=== PATIENT | female | born 1960 | race Caucasian/White ===

== ENCOUNTER 2017-03-30 20:08 | Inpatient (IN) ==
--- NOTE | 2017-03-30 20:27 | Emergency Department Note ---
Disposition Clinical Impression: Uncontrolled pain Sciatica Qualifiers: Laterality: right Qualified Code(s): M54.31 - Sciatica, right side Back pain Qualifiers: Back pain location: low back pain Chronicity: acute Back pain laterality: unspecified Sciatica presence: with sciatica Sciatica laterality: sciatica laterality unspecified Qualified Code(s): M54.40 - Lumbago with sciatica, unspecified side Disposition: Admitted As Inpatient Condition: Good Instructions: Sciatica (ED) Referrals: NO,PCP [Non-Partnered Physician] - Forms: ED Satisfaction Letter Time of Disposition: 23:47 Back Pain HPI - General Chief Complaint: ED Back Pain/Injury Stated Complaint: Back Pain Time Seen by Provider: 03/30/17 20:23 Source: EMS Mode of arrival: EMS Limitations: no limitations Nursing Notes Reviewed: Yes Vital Signs Reviewed: Yes - History of Present Illness HPI Narrative: 57-year-old female with history of fibromyalgia and IBS presents via EMS for low atraumatic back pain. Reports back soreness that started yesterday. Denies any trauma or injury to the area. She reports a history of microdiscectomy to L4-L5 with Dr. Lozoya 8 weeks ago with a 6 week follow up 2 weeks ago without any complications. Reports today she began experiencing tremendous back pain mostly on the right side and in the buttock area. She has pain that radiates down to the right lower extremity. Pain worse with any type of movement. So painful she can't walk and had to call EMS. She has taken Mobic , gabapentin and a leftover Percocet without much relief. She denies any fever, recent illness, urinary incontinence, bladder incontinence, or saddle anesthesia. She reports pain along the hip and during the EMS ride some lower abdominal tenderness. - Related Data Home Medications Medication Instructions Recorded Confirmed Albuterol Sulfate [Albuterol 2 puff IH Q4HR PRN 01/25/17 01/25/17 Inhaler] Baclofen [Lioresal] 10 mg PO TID 01/25/17 01/25/17 Fluticasone/Vilanterol [Breo 1 each IH DAILY 01/25/17 01/25/17 Ellipta 100-25 Mcg INH] Gabapentin [Neurontin] 1,200 mg PO TID 01/25/17 01/25/17 Meloxicam [Mobic] 15 mg PO DAILY 01/25/17 01/25/17 Omeprazole [PriLOSEC] 40 mg PO DAILY 01/25/17 01/25/17 lamoTRIgine [Lamictal] 150 mg PO BID 01/25/17 01/25/17 Previous Rx's Medication Instructions Recorded OxyCODONE Immed Rel [Roxicodone 5 5 mg PO Q6HR PRN #60 tablet 01/26/17 MG] Allergies Allergy/AdvReac Type Severity Reaction Status Date / Time No Known Allergies Allergy Verified 03/30/17 20:12 All systems ED: reviewed and negative except as stated. Constitutional: Denies: fever, chills Cardiovascular: Denies: chest pain Respiratory: Denies: cough, dyspnea Gastrointestinal: Reports: abdominal pain. Denies: nausea, vomiting, diarrhea Genitourinary: Denies: urgency, dysuria, frequency Musculoskeletal: Reports: back pain. Denies: neck pain Integumentary: Denies: rash, abrasion Neurological: Reports: abnormal gait Past Medical History - Past Medical History Attestation: Yes The following information was validated with the patient. Source: patient Medical history: Reports: asthma, fibromyalgia, GERD Surgical history: Reports: hysterectomy, other Psychiatric history: Reports: anxiety, depression, panic disorder - Social History Smoking Status: Current every day smoker Smokeless Tobacco Status: No Alcohol use: Reports: none Drug use: Reports: none Physical Exam - General Limitations: no limitations General appearance: alert, other (appears uncomfortable) - Head Head exam: atraumatic, normocephalic, normal inspection - Eye Eye exam: Present: normal appearance, PERRL, EOMI - ENT ENT exam: normal exam, normal oropharynx, mucous membranes moist - Neck Neck exam: Present: normal inspection, full ROM, trachea midline - Chest Chest inspection: Present: normal inspection, symmetric chest wall rise. Absent : tenderness - Respiratory Respiratory exam: Present: normal lung sounds bilaterally. Absent: respiratory distress, wheezes - Cardiovascular Cardiovascular exam: Present: regular rate, normal rhythm, normal heart sounds - Abdominal Exam Abdominal exam: Present: soft, tenderness, normal bowel sounds. Absent: distention, guarding, rebound, rigidity Abdominal tenderness: Present: suprapubic - Back Exam Back exam: Present: tenderness (right lumbosacral and right buttock), paraspinal tenderness (R > L), straight leg raise (R), other (Midline incision consistent with discectomy, no significant erythema or fluctuance to the area). Absent: CVA tenderness (R), CVA tenderness (L), vertebral tenderness, rashes - Neurological Exam Neurological exam: Present: alert, oriented X3, motor sensory deficit (tingling to the right lower extremity, refuses to move right leg even with passive ROM as it elicitis significant pain, pain with minimal hip flexion and knee extension) - Expanded Neurological Exam Patient oriented to: Present: person, place, time Sensory exam upper extremity: light touch: Normal Sensory exam lower extremity: light touch: Abnormal Right - Psychiatric Psychiatric exam: Present: anxious - Skin Skin exam: Present: warm, dry, intact, normal color. Absent: rash, cyanosis Course Course Narrative: 57-year-old white female who presents for worsening right lower back pain with radiation to right lower extremity. History of disectomy by Dr. Lozoya with recent follow up and no complications. Reports atraumatic back pain that began yesterday and worst today. Denies any fever, saddle anesthesia, urinary incontinence or bowel incontinence. Reports weakness in the right lower extremity to the point she cannot stand. Any minimal movement exacerbates the pain in the right lower back and also the hip. Denies any fall or trauma. On examination patient is anxious and appears uncomfortable. No focal neurologic deficits. She refuses to move the right lower extremity and at one point reports paralysis of the right lower extremity due to the pain. The leg is very stiff and in a locked position, when I examined it she would not relax the leg. Initial believed to be a cramp but pain continued to persist when relaxed. Any passive movement to the right lower extremity exhibits pain to the back. Movement of the left extremity also produced similar pain as well. She reports tingling and decreased sensation to the entire lower leg and into the foot. 4/5 muscle strength in the right foot. Good bilateral peripheral pulses. She has suprapubic tenderness and requests straight cath for urine sample as she is unable to move without being in tremendous pain. Bladder ultrasound revealed a full bladder. Will check urinalysis, basic labs, and obtain MRI of lumbar spine. Dilaudid, toradol, and decadron for the pain. Patient is in agreement with this plan. Disposition pending results of labs and imaging. - Reevaluation(s) Reevaluation #1: Labs unremarkable with mild elevation of ESR. Urine is unremarkable for infection or pyelonephritis. MRI shows mild disc herniation but no stenosis or neural impingement. There are postoperative changes from recent procedure. At this point no neurosurgical emergency. On re-evaluation, pain has improved with medications but patient continues to have discomfort and limited ROM. Denies any head trauma and reports 2 days ago she was up and walking without any difficulty. She refuses to ambulate due to pain and will therefore admit due to intractable pain and inability to ambulate. Patient is in agreement with this plan. Lumbar Spine MRI 03/30/17 20:51 IMPRESSION: 1. Postoperative changes from recent decompressive right jamin laminectomy at L4-5 with probable discectomy. Residual and/or recurrent right subarticular disc protrusion closely approximates the descending right L5 nerve root in the right lateral recess. Enhancing postoperative granulation tissue within the right lateral epidural space and surrounding the right L5 nerve root. No complication identified. 2. Small central disc protrusion at L5-S1 without stenosis or neural impingement. 3. Additional shallow left foraminal disc protrusion at L4-5 without neural impingement or significant stenosis. 4. Shallow right subarticular disc protrusion at T11-12 without stenosis or neural impingement. D/ / Yan Gage MD / Yan Gage MD Interpreting Provider: Yan Gage MD Time: 23:48 - Consultations Consultation #1: Spoke with on-call hospitalist katelynn Cadena to admit for low back pain and intractable pain. No further orders at this time. Time: 23:48 Vital Signs Temperature 98.6 F 03/30/17 20:15 Pulse Rate 92 03/30/17 20:15 Respiratory Rate 18 03/30/17 20:15 Blood Pressure 155/106 03/30/17 20:15 O2 Sat by Pulse Oximetry 100 03/30/17 20:15 Temperature 98.6 F 03/30/17 20:15 Pulse Rate 80 03/30/17 23:44 Respiratory Rate 16 03/30/17 23:44 Blood Pressure 128/83 03/30/17 23:44 O2 Sat by Pulse Oximetry 94 03/30/17 23:44 Oxygen Delivery Oxygen Delivery Room Air Back Pain/Injury - Differential Diagnosis Differential Diagnosis: Likely: lumbar radiculopathy, sciatica, thoracic back pain, discitis. Unlikely: AAA - Medical Records Medical records reviewed: Yes I reviewed the patient's medical records. - Lab Data Lab results reviewed: Yes I reviewed the patient's lab results. Result diagrams: 03/30/17 21:05 03/30/17 21:05 Lab Results 03/30/17 03/30/17 03/30/17 Range/Units 20:30 21:05 21:05 WBC 7.7 (4.3-11.1) K/mcL RBC 4.32 (3.82-4.97) M/mcL Hgb 13.7 (11.5-15.4) g/dL Hct 40.3 (35.3-44.9) % MCV 93.3 (83.0-100.0) fL MCH 31.7 (28.0-33.3) pg MCHC 34.0 (31.6-35.5) g/dL RDW 13.1 (11.5-14.5) % Plt Count 268 (140-400) K/mcL MPV 9.3 L (9.4-12.4) fL Immature Gran % 0.1 (0-4) % Seg Neutrophils % 56.8 % Lymphocytes % 33.0 % Monocytes % 6.6 % Eosinophils % 2.7 % Basophils % 0.8 % Neutrophils # 4.4 (1.6-8.9) K/mcL Lymphocytes # 2.6 (0.6-4.6) K/mcL Monocytes # 0.5 (0.0-1.3) K/mcL Eosinophils # 0.2 (0.0-0.6) K/mcL Basophils # 0.1 (0.0-0.2) K/mcL ESR 28 H (0-15) mm/hr Sodium (136-145) mEq/L Potassium (3.5-4.5) mEq/L Chloride (98-109) mEq/L Carbon Dioxide (19-29) mEq/L BUN (7-20) mg/dL Creatinine (0.57-1.11) mg/dL Est GFR ( Amer) (> 60) Est GFR (Non-Af Amer) (> 60) BUN/Creatinine Ratio (6-26) Glucose (70-99) mg/dL Calculated Osmolality (280-300) Calcium (8.6-10.8) mg/dL Urine Color Yellow (Yellow) Urine Clarity Clear (Clear) Urine pH 7.0 (5.0-8.0) pH Units Ur Specific [place] 1.005 L (1.010-1.025) Urine Protein Negative (Neg-Trace) mg/dL Urine Glucose (UA) Normal (Normal) mg/dL Urine Ketones Trace H (Negative) mg/dL Urine Blood Negative (Negative) Urine Nitrite Negative (Negative) Urine Bilirubin Negative (Negative) Urine Urobilinogen Normal (Normal) mg/dL Ur Leukocyte Esterase Negative (Negative) Ur Culture Indicated? NO (NO) 03/30/17 Range/Units 21:05 WBC (4.3-11.1) K/mcL RBC (3.82-4.97) M/mcL Hgb (11.5-15.4) g/dL Hct (35.3-44.9) % MCV (83.0-100.0) fL MCH (28.0-33.3) pg MCHC (31.6-35.5) g/dL RDW (11.5-14.5) % Plt Count (140-400) K/mcL MPV (9.4-12.4) fL Immature Gran % (0-4) % Seg Neutrophils % % Lymphocytes % % Monocytes % % Eosinophils % % Basophils % % Neutrophils # (1.6-8.9) K/mcL Lymphocytes # (0.6-4.6) K/mcL Monocytes # (0.0-1.3) K/mcL Eosinophils # (0.0-0.6) K/mcL Basophils # (0.0-0.2) K/mcL ESR (0-15) mm/hr Sodium 138 (136-145) mEq/L Potassium 3.4 L (3.5-4.5) mEq/L Chloride 106 (98-109) mEq/L Carbon Dioxide 21 (19-29) mEq/L BUN 8 (7-20) mg/dL Creatinine 0.84 (0.57-1.11) mg/dL Est GFR ( Amer) > 60 (> 60) Est GFR (Non-Af Amer) > 60 (> 60) BUN/Creatinine Ratio 10 (6-26) Glucose 96 (70-99) mg/dL Calculated Osmolality 284 (280-300) Calcium 9.6 (8.6-10.8) mg/dL Urine Color (Yellow) Urine Clarity (Clear) Urine pH (5.0-8.0) pH Units Ur Specific [place] (1.010-1.025) Urine Protein (Neg-Trace) mg/dL Urine Glucose (UA) (Normal) mg/dL Urine Ketones (Negative) mg/dL Urine Blood (Negative) Urine Nitrite (Negative) Urine Bilirubin (Negative) Urine Urobilinogen (Normal) mg/dL Ur Leukocyte Esterase (Negative) Ur Culture Indicated? (NO) - Radiology Data Radiology results reviewed: Yes I reviewed the patient's radiology results. Lumbar Spine MRI 03/30/17 20:51 IMPRESSION: 1. Postoperative changes from recent decompressive right jamin laminectomy at L4-5 with probable discectomy. Residual and/or recurrent right subarticular disc protrusion closely approximates the descending right L5 nerve root in the right lateral recess. Enhancing postoperative granulation tissue within the right lateral epidural space and surrounding the right L5 nerve root. No complication identified. 2. Small central disc protrusion at L5-S1 without stenosis or neural impingement. 3. Additional shallow left foraminal disc protrusion at L4-5 without neural impingement or significant stenosis. 4. Shallow right subarticular disc protrusion at T11-12 without stenosis or neural impingement. D/ / Yan Gage MD / Yan Gage MD Interpreting Provider: Yan Gage MD Attestation Statement - Attestation Attestation: Patient is a 57-year-old white female who presents to the emergency department by EMS today for gradually worsening right-sided back pain. Patient is status post lumbosacral surgery and discectomy by Dr. Lozoya on January 26 of this year. Patient followed up in the office 2 weeks ago for outpatient follow-up and had been doing quite well, fully ambulatory with minimal to no pain. Patient states last few days she has had gradually worsening lumbosacral back pain which has significantly worsened today. Patient feels pain in bilateral paraspinal lumbosacral area right greater than left and is having pain that radiates down and involves the right gluteal area and the right posterior and lateral thigh. Patient denies any weakness of the extremities but range of motion at the hip or knee causes worsening pain in her right gluteal area and low back. Patient denies any falls or trauma at home that may have contributed to her worsening symptoms. Patient denies any fevers or chills, no drainage or redness near the incision. Patient denies any loss of bowel or bladder associated with this increased pain. Patient without focal neurologic deficits on examination. I agree with the patient's physical exam findings as documented. At this time we will obtain IV access and treat the patient's pain, obtain urinalysis and labs, and pursue MRI imaging due to severity of pain on presentation. Labs are unremarkable, MRI shows some mild disc herniation but no nerve impingement or encroachment on the spine. On reevaluation following pain medicine administration patient is still having limited range of motion refuses to ambulate secondary to pain. We will admit the patient due to her inability to ambulate and continue pain control and reevaluate in the morning. Patient was accepted by the hospitalist for ongoing pain management.
[2017-03-30] MEDS ORDERED: Ketorolac 15 MG/ML VIAL IVP ONE (20:51)
[2017-03-30] MEDS ORDERED: *HR* HYDROmorphone (PF) 1 MG/ML SYRINGE IVP ONE (20:51)
[2017-03-30] MEDS ORDERED: Dexamethasone 4 MG/ML VIAL IVP ONE (20:52)
[2017-03-30 21:12] LABS: Basophils # 0.1 K/mcL (0.0-0.2); Basophils % 0.8 %; Eosinophils # 0.2 K/mcL (0.0-0.6); Eosinophils % 2.7 %; Hematocrit 40.3 % (35.3-44.9); Hemoglobin 13.7 g/dL (11.5-15.4); Immature Granulocytes % 0.1 % (0-4); Lymphocytes # 2.6 K/mcL (0.6-4.6); Mean Corpuscular Hemoglobin 31.7 pg (28.0-33.3); Mean Corpuscular Volume 93.3 fL (83.0-100.0); Mean Platelet Volume 9.3 fL (9.4-12.4); Monocytes # 0.5 K/mcL (0.0-1.3); Monocytes % 6.6 %; Neutrophils # 4.4 K/mcL (1.6-8.9); Platelet Count 268 K/mcL (140-400); Red Blood Count 4.32 M/mcL (3.82-4.97); Red Cell Distribution Width 13.1 % (11.5-14.5); Segmented Neutrophils % 56.8 %
[2017-03-30 21:23] LABS: BUN/Creatinine Ratio 10 (6-26); Blood Urea Nitrogen 8 mg/dL (7-20); Calcium 9.6 mg/dL (8.6-10.8); Carbon Dioxide 21 mEq/L (19-29); Chloride 106 mEq/L (98-109); Glucose 96 mg/dL (70-99); Osmolality,Calculated 284 (280-300); Potassium 3.4 mEq/L (3.5-4.5); Sodium 138 mEq/L (136-145); eGFR For African Americans > 60 (> 60); eGFR For Non-African Americans > 60 (> 60)
[2017-03-30 21:41] LABS: Bilirubin,Urine Negative (Negative); Blood,Urine Negative (Negative); Clarity,Urine Clear (Clear); Color,Urine Yellow (Yellow); Glucose,Urine (UA) Normal (Normal); Ketones,Urine Trace mg/dL (Negative); Leukocyte Esterase,Urine Negative (Negative); Nitrite,Urine Negative (Negative); Protein,Urine Negative (Neg-Trace); Specific Gravity,Urine 1.005 (1.010-1.025); Urobilinogen,Urine Normal (Normal)
[2017-03-31] MEDS ORDERED: *HR* HYDROmorphone (PF) 1 MG/ML SYRINGE IVP ONE (01:53)
[2017-03-31] MEDS ORDERED: Naloxone 0.4 MG/ML INJ IVP PRN (03:13)
--- NOTE | 2017-03-31 03:19 | Internal Med History&Physical ---
Date of Encounter: 03/31/17 Time of Encounter: 03:16 Assessment and Plan (1) Intractable back pain Current visit: Yes Status: Acute Intractable back pain, history of L4-L5 discectomy Consult Dr. Lozoya Use Toradol and Dilaudid as needed Fall precautions Omeprazole for GI prophylaxis and subcutaneous heparin for DVT prophylaxis. Patient will be admitted for observation. Full code. Time spent on this admission 40 minutes. Following (2) Hypokalemia Current visit: Yes Status: Acute Replete as needed (3) GERD (gastroesophageal reflux disease) Current visit: Yes Status: Acute Omeprazole Qualifiers: Esophagitis presence: without esophagitis Qualified Code(s): K21.9 - Gastro -esophageal reflux disease without esophagitis (4) Tobacco abuse Current visit: Yes Status: Acute Smoking cessation counseling, nicotine patch (5) Neuropathy Current visit: Yes Status: Acute (6) Lumbar radiculopathy Current visit: No Status: Chronic (7) Sciatica Current visit: Yes Status: Acute Qualifiers: Laterality: right Qualified Code(s): M54.31 - Sciatica, right side Internal Medicine - H&P: HPI Chief complaint: back pain Admitted From: Emergency Dept History of present illness: Ms. Taylor is a 57 year old female with a past medical history of fibromyalgia, tobacco use, neuropathy who was evaluated at the emergency room for increased back pain since yesterday. She was brought by the EMS complaining of excruciating lumbar pain radiating down to her right lower extremity 10 out of 10 in intensity. The patient had a discectomy and L4-L5 with Dr. Lozoya about 8 weeks ago. An MRI showed no acute changes or severe stenosis but multiple areas with central disc protrusion especially L5 and S1, residual findings of L4 and L5 discectomy with right subarticular disc protrusion. The patient was not able to stand up or move her leg due to severe pain. At the moment after receiving Toradol and Dilaudid the pain is 8 out of 10. Blood pressure is 155/ 106 and heart rate 92. Denies any incontinence. Potassium is 3.4. Requested to see Dr. Lozoya later today Past Med Surg Social Fam HX - Past Medical History Medical history: asthma, fibromyalgia, GERD, other (Tobacco abuse, neuropathy, hepatitis B, shingles) Psychiatric history: anxiety, depression, panic disorder, previous psychiatric hospitalization - Past Surgical History Surgical History: hysterectomy, STEVEN/BSO, other (D&C, tubal ligation, recent discectomy) - Social History Smoking Status: Current every day smoker Packs per day: 0.5 Smokeless Tobacco Status: No Alcohol use: occasionally Drug use: none - Family History Father Living Status: Hx Family Cardiac Disorders: Yes (stroke) Hx Family Neuromuscular Disorders: Yes (CVA) - Additional Family History Additional family history: Father with prostate cancer CVA, mother with cervical cancer and Alzheimer's Internal Medicine - H&P: Meds Albuterol Sulfate [Albuterol Inhaler] 2 puff IH Q4HR PRN 01/25/17 [History] Baclofen [Lioresal] 10 mg PO TID 01/25/17 [History] Fluticasone/Vilanterol [Breo Ellipta 100-25 Mcg INH] 1 each IH DAILY 01/25/17 [ History] Gabapentin [Neurontin] 1,200 mg PO TID 01/25/17 [History] Meloxicam [Mobic] 15 mg PO DAILY 01/25/17 [History] Omeprazole [PriLOSEC] 40 mg PO DAILY 01/25/17 [History] lamoTRIgine [Lamictal] 150 mg PO BID 01/25/17 [History] OxyCODONE Immed Rel [Roxicodone 5 MG] 5 mg PO Q6HR PRN #60 tablet 01/26/17 [Rx] Allergies No Known Allergies Allergy (Verified 03/30/17 20:12) All Systems PM: A 10-system review of systems was performed and is negative for pertinent findings except as documented above in the HPI. Review of systems: Severe right lower extremity pain. All other systems out of the 10 reviewed were negative - Constitutional Vitals: Temp Pulse Resp BP Pulse Ox 98.6 F 80 16 128/83 94 03/30/17 20:15 03/30/17 23:44 03/30/17 23:44 03/30/17 23:44 03/30/17 23:44 General appearance: Present: A&O X 3 - Head Head exam: Present: atraumatic, normocephalic - Eye Eye exam: Present: PERRL, conjuntiva pink, sclera anicteric Pupils: Present: PERRL - Neck Neck exam general surgery: Present: supple, trachea midline. Absent: lymphadenopathy - Respiratory Respiratory exam: Present: CTAB. Absent: accessory muscle use, rales, rhonchi, wheezes - Cardiovascular Cardiovascular exam: Present: RRR, +S1, +S2. Absent: diastolic murmur, gallop, rubs, systolic murmur - GI/Abdominal GI/Abdominal exam: Present: normal bowel sounds, soft, no peritoneal signs. Absent: distended, tenderness - Extremities Exam Extremities exam: Present: warm, radial pulses palpable and symetrical. Absent : calf tenderness, cyanotic, pedal edema Additional comments: Unable to move the right lower extremity due to pain - Neurological Exam Neurological exam: Present: CN II-XII intact, oriented X3, no focal deficits. Absent: pronater drift, facial droop, speech deficit - Skin Skin exam: Present: dry, intact Internal Med - H&P Results - Labs CBC & Chem 7: 03/30/17 21:05 03/30/17 21:05
[2017-03-31] MEDS: Ketorolac 30 MG/ML VIAL IVP PRN ×3 (04:02→17:47)
[2017-03-31] MEDS: *HR* HYDROmorphone (PF) 1 MG/ML SYRINGE IVP PRN ×2 (04:02→08:54)
[2017-03-31] MEDS: 0.9 % Sodium Chloride 1,000 ML IVC SCH ×2 (05:59→21:04)
[2017-03-31] MEDS: lamoTRIgine 100 MG TABLET PO SCH ×2 (08:30→20:52)
[2017-03-31] MEDS: Baclofen 10 MG TABLET PO SCH ×2 (08:30→15:10)
[2017-03-31] MEDS: Gabapentin 400 MG CAPSULE PO SCH ×3 (08:30→20:52)
[2017-03-31] MEDS: Nicotine 21 MG PATCH.TD24 TD SCH (08:30)
[2017-03-31] MEDS: *HR* Heparin 5,000 UNIT/ML VIAL SQ SCH (10:04)
[2017-03-31] MEDS: *HR* HYDROmorphone 2 MG/ML SYRINGE IVP PRN ×4 (10:12→21:03)
[2017-03-31] MEDS ORDERED: Albuterol 2.5 MG/3 ML NEBULIZER IH PRN (10:53)
--- NOTE | 2017-03-31 13:54 | Orthopedic Consult Note ---
Date of Encounter: 03/31/17 Time of Encounter: 11:00 Assessment and Plan (1) Low back pain Current Visit: Yes Status: Chronic MRI and case reviewed with Dr. Lozoya. Will stop patient's Baclofen and start Tizanidine to trial different muscle relaxer. Will plan for ADELINE with Dr. Rangel as patient has had injections by him in the past and was pleased with his care as soon as able to be scheduled. Qualifiers: Chronicity: chronic Back pain laterality: bilateral Sciatica presence: with sciatica Sciatica laterality: sciatica of right side Qualified Code(s) : M54.41 - Lumbago with sciatica, right side; G89.29 - Other chronic pain (2) Right leg pain Current Visit: Yes Status: Acute History of Present Illness Chief complaint: low back pain, right leg pain HPI: Ms. Taylor is a 57 year old female presents for low back and right leg pain that had microdiscetomy L4-L5 on 01/25/17 and had been doing well up until per patient about the past "few" days. States it began as low back pain that began wrapping around her flank to her bladder area. She states 1 day ago she began experiencing tremendous back pain with radiation of pain down her posterior and lateral right lower extremity per pt mostly in the buttock posterior and lateral thigh as well as lateral calf. She states she has been very weak because of this pain and states "I know something is wrong". She admits to a history of Fibromyalgia for which she takes Baclofen on a regular basis which per patient has not helped with her current pain. She states that it intensifies tremendously with movement of her back or legs but is tolerable with laying flat on her back still. She admits to a history of kidney stones and states she believes she passed one yesterday. She states her lower abdominal pain is improved, but her right hip/buttock pain is the same as yesterday. She admits to lifting her 20-40lb grandchildren repeatedly each day since her lifting restrictions were lifted at her last follow up with [facility]. She denies any fever, recent illness, bowel or bladder incontinence, or saddle anesthesia. Upon exam patient is lying supine in bed. She is alert and oriented x 3. She is anxious and becomes tearful with conversation about her situation. She is neurovascularly intact with regard to all extremities. She does admit to some paresthesias along the right lateral thigh and lateral calf with light touch, expresses pain with palpation of these areas. Right hip from SI anterior to greater trochanteric bursa area exquisitely tender to touch. Passive ROM of bilateral lower extremities within normal limits. AROM impeeded on the left and right in particular with knee and hip motion. Rigth worse than left. It seems pain is contributing to impeeded AROM on the right. Straight leg raise positive on the right. MRI lumbar spine from 03/30/17 reveals: IMPRESSION: 1. Postoperative changes from recent decompressive right jamin laminectomy at L4-5 with probable discectomy. Residual and/or recurrent right subarticular disc protrusion closely approximates the descending right L5 nerve root in the right lateral recess. Enhancing postoperative granulation tissue within the right lateral epidural space and surrounding the right L5 nerve root. No complication identified. 2. Small central disc protrusion at L5-S1 without stenosis or neural impingement. 3. Additional shallow left foraminal disc protrusion at L4-5 without neural impingement or significant stenosis. 4. Shallow right subarticular disc protrusion at T11-12 without stenosis or neural impingement. MRI and case reviewed with Dr. Lozoya. Will stop patient's baclofen and start Tizanidine to trial different muscle relaxer. Will plan for ADELINE with Dr. Rangel as patient has had injections by him in the past and was pleased with his care as soon as able to be scheduled. Thank you for this consultation. Past Med Surg Social Fam HX - Past Medical History Medical history: asthma, fibromyalgia, GERD Psychiatric history: anxiety, depression, panic disorder - Past Surgical History Surgical History: hysterectomy, other - Social History Smoking Status: Current every day smoker Packs per day: 0.5 Smokeless Tobacco Status: No Alcohol use: none Drug use: none - Family History Father Living Status: Hx Family Cardiac Disorders: Yes (stroke) Hx Family Neuromuscular Disorders: Yes (CVA) Medications and Allergies Albuterol Sulfate [Albuterol Inhaler] 2 puff IH Q4HR PRN 01/25/17 [History] Baclofen [Lioresal] 10 mg PO TID 01/25/17 [History] Fluticasone/Vilanterol [Breo Ellipta 100-25 Mcg INH] 1 each IH DAILY 01/25/17 [ History] Gabapentin [Neurontin] 1,200 mg PO TID 01/25/17 [History] Meloxicam [Mobic] 15 mg PO DAILY 01/25/17 [History] Omeprazole [PriLOSEC] 40 mg PO DAILY 01/25/17 [History] lamoTRIgine [Lamictal] 150 mg PO BID 01/25/17 [History] Benzonatate [Tessalon] 100 mg PO TID PRN 03/31/17 [History] HYDROcodone/Acet 5/325 mg [[place] 5-325 mg] 1 tab PO Q8H PRN 03/31/17 [History] Allergies No Known Allergies Allergy (Verified 03/30/17 20:12) All Systems Reviewed: A 10-system review of systems was performed and is negative for pertinent findings except as documented above in the HPI. Physical Exam - Constitutional Vitals: Temp Pulse Resp BP Pulse Ox 97.8 F 88 18 152/86 96 03/31/17 11:07 03/31/17 11:07 03/31/17 11:07 03/31/17 11:07 03/31/17 11:07 Results - Labs Result Diagrams: 03/30/17 21:05 03/30/17 21:05 Labs: Abnormal lab results MPV 9.3 fL (9.4-12.4) L 03/30/17 21:05 ESR 28 mm/hr (0-15) H 03/30/17 21:05 Potassium 3.4 mEq/L (3.5-4.5) L 03/30/17 21:05 Ur Specific [place] 1.005 (1.010-1.025) L 03/30/17 20:30 Urine Ketones Trace mg/dL (Negative) H 03/30/17 20:30 All other labs normal. Consult Discharge Plan - Plan Referrals: Fer Cobb MD [Primary Care Provider] -
--- NOTE | 2017-03-31 13:57 | Event Note ---
Date of Encounter: 03/31/17 Time of Encounter: 09:35 Patient continues to have severe back pain that has not improved with current pain medication regimen. We will increase narcotic medication regimen. Height is for complications. Discussed with Dr. Lozoya. He reviewed the MRI of the patient and will evaluate the patient later today.
[2017-03-31] MEDS ORDERED: tiZANidine 4 MG TABLET PO PRN (15:22)
[2017-03-31] MEDS: Ondansetron 4 MG/2 ML VIAL IVP PRN (17:42)
[2017-03-31] MEDS: Budesonide/Formoterol 160/4.5 MDI IH SCH (20:26)
[2017-04-01] MEDS: *HR* HYDROmorphone 2 MG/ML SYRINGE IVP PRN ×2 (04:17→10:46)
[2017-04-01 05:06] LABS: BUN/Creatinine Ratio 10 (6-26); Blood Urea Nitrogen 7 mg/dL (7-20); Calcium 8.5 mg/dL (8.6-10.8); Carbon Dioxide 22 mEq/L (19-29); Chloride 112 mEq/L (98-109); Glucose 96 mg/dL (70-99); Osmolality,Calculated 288 (280-300); Potassium 4.1 mEq/L (3.5-4.5); Sodium 140 mEq/L (136-145); eGFR For African Americans > 60 (> 60); eGFR For Non-African Americans > 60 (> 60)
[2017-04-01] MEDS: *HR* Heparin 5,000 UNIT/ML VIAL SQ SCH ×2 (06:33→19:08)
[2017-04-01] MEDS: Budesonide/Formoterol 160/4.5 MDI IH SCH ×2 (08:42→20:27)
[2017-04-01] MEDS ORDERED: *HR* OxyCODONE/APAP 10/325 TABLET PO PRN (08:44)
[2017-04-01] MEDS ORDERED: Ketorolac 30 MG/ML VIAL IVP PRN (08:57)
[2017-04-01] MEDS: Gabapentin 400 MG CAPSULE PO SCH ×3 (09:17→22:38)
[2017-04-01] MEDS: lamoTRIgine 100 MG TABLET PO SCH ×2 (09:17→22:37)
[2017-04-01] MEDS: Nicotine 21 MG PATCH.TD24 TD SCH (09:18)
[2017-04-01] MEDS: *HR* OxyCODONE/APAP 10/325 TABLET PO PRN ×3 (09:18→22:37)
[2017-04-01] MEDS: Sennosides/Docusate Sodium TABLET PO SCH (12:10)
[2017-04-01] MEDS: tiZANidine 4 MG TABLET PO SCH ×3 (13:50→22:38)
--- NOTE | 2017-04-01 16:14 | Internal Med Progress Note ---
Date of Encounter: 04/01/17 Time of Encounter: 09:25 - Assessment and plan (1) Intractable back pain Current Visit: Yes Status: Acute Assessment and plan: Intractable low back pain. Improving slowly. Evaluated by spine surgery. Recommend outpatient pain management evaluation for epidural steroid injection. For now continue pain control and physical therapy. Will start oral pain medications in addition to narcotic intravenous medications. High-risk for complications due to use of intravenous narcotic medications. Patient received 4 doses of 2 mg Dilaudid yesterday. Patient has also been started on Zanaflex for muscle spasm. Baclofen has been stopped. (2) GERD (gastroesophageal reflux disease) Current Visit: Yes Status: Acute Assessment and plan: Continue omeprazole Qualifiers: Esophagitis presence: without esophagitis Qualified Code(s): K21.9 - Gastro -esophageal reflux disease without esophagitis (3) Hypokalemia Current Visit: Yes Status: Resolved (4) Lumbar radiculopathy Current Visit: No Status: Chronic Assessment and plan: Follow-up with spine surgery and pain management as outpatient. For now continue physical therapy. (5) Neuropathy Current Visit: Yes Status: Chronic Assessment and plan: Continue Neurontin. - Subjective Interval history: Patient's pain is much better today although she is still requiring intravenous narcotic medications to control her pain. She is able to move more without worsening pain. She denies any new complaints at this time although she does have some continued numbness in her right lower extremity compared to her left. No bowel bladder incontinence - Constitutional Vitals: Temp Pulse Resp BP Pulse Ox 98.4 F 76 16 110/62 93 04/01/17 11:26 04/01/17 14:27 04/01/17 14:27 04/01/17 14:27 04/01/17 14:27 General appearance: Present: cooperative, A&O X 3, answers questions appropriately Exam: Moderate distress - Eye Eye exam: Present: EOMI, PERRL, conjuntiva pink, sclera anicteric - Neck Neck exam general surgery: Present: supple, trachea midline. Absent: lymphadenopathy - Respiratory Respiratory exam: Present: CTAB. Absent: accessory muscle use, rales, rhonchi, wheezes - Cardiovascular Cardiovascular exam: Present: RRR, +S1, +S2. Absent: diastolic murmur, gallop, rubs, systolic murmur - GI/Abdominal GI/Abdominal exam: Present: normal bowel sounds, soft, no peritoneal signs. Absent: distended, tenderness - Extremities Exam Extremities exam: Present: warm, radial pulses palpable and symetrical. Absent : calf tenderness, cyanotic, pedal edema - Neurological Exam Neurological exam: Present: CN II-XII intact, oriented X3, no focal deficits, strengths equal and symetr throughout. Absent: facial droop, speech deficit Additional comments: Decreased sensation in the right foot dorsal surface compared to the left - Skin Skin exam: Present: dry, intact Internal Medicine: Result - Labs CBC & Chem 7: 03/30/17 21:05 04/01/17 04:06 Labs: BMP 04/01/17 04:06 Sodium 140 Potassium 4.1 Chloride 112 H Carbon Dioxide 22 BUN 7 Creatinine 0.73 Glucose 96 Calcium 8.5 L Consult Discharge Plan - Plan Referrals: Fer Cobb MD [Primary Care Provider] - 04/08/17 2:15 pm () - Attending Attestation This document has been at least partially created by [employer] recognition technology by Dr. Cunningham. Errors in grammar, wording or other phrases may exist. If errors are found after the documentation is signed, they will be addressed individually in the addendum section of this document when appropriate.
[2017-04-02] MEDS: *HR* HYDROmorphone 2 MG/ML SYRINGE IVP PRN ×2 (01:57→10:04)
[2017-04-02] MEDS: *HR* Heparin 5,000 UNIT/ML VIAL SQ SCH ×2 (05:02→16:14)
[2017-04-02] MEDS: tiZANidine 4 MG TABLET PO SCH ×4 (08:13→20:17)
[2017-04-02] MEDS: lamoTRIgine 100 MG TABLET PO SCH ×2 (08:13→20:17)
[2017-04-02] MEDS: Gabapentin 400 MG CAPSULE PO SCH ×3 (08:13→20:16)
[2017-04-02] MEDS: *HR* OxyCODONE/APAP 10/325 TABLET PO PRN ×2 (08:14→23:20)
[2017-04-02] MEDS: Sennosides/Docusate Sodium TABLET PO SCH (08:15)
[2017-04-02] MEDS: Nicotine 21 MG PATCH.TD24 TD SCH (08:15)
[2017-04-02] MEDS ORDERED: Sennosides/Docusate Sodium TABLET PO SCH (09:00)
[2017-04-02] MEDS: Budesonide/Formoterol 160/4.5 MDI IH SCH ×2 (11:19→22:36)
[2017-04-02] MEDS ORDERED: *HR* HYDROmorphone 2 MG/ML SYRINGE IVP PRN (11:27)
--- NOTE | 2017-04-02 13:53 | Internal Med Progress Note ---
Date of Encounter: 04/02/17 Time of Encounter: 09:00 - Assessment and plan (1) Intractable back pain Current Visit: Yes Status: Acute Assessment and plan: Continue current management with physical therapy pain medications. His current therapy recommends placement to inpatient rehabilitation/swelling bed. 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 We will continue physical therapy in the meantime. Moderate risk for complications. We will wean dosages of intravenous narcotic medications and transition to oral medications. (2) GERD (gastroesophageal reflux disease) Current Visit: Yes Status: Chronic Assessment and plan: Continue PPI Qualifiers: Esophagitis presence: without esophagitis Qualified Code(s): K21.9 - Gastro -esophageal reflux disease without esophagitis (3) Hypokalemia Current Visit: Yes Status: Resolved (4) Lumbar radiculopathy Current Visit: No Status: Chronic Assessment and plan: Follow-up with pain management as outpatient (5) Neuropathy Current Visit: Yes Status: Chronic Assessment and plan: Continue gabapentin - Subjective Interval history: Patient's pain is improving but she still has significant pain with trying to sit up and ambulate. Continues to require intermittent doses of narcotic medications intravenously. Denies any bowel or bladder incontinence or focal weakness in her lower extremities - Constitutional Vitals: Temp Pulse Resp BP Pulse Ox 98.1 F 76 16 116/71 91 04/02/17 11:31 04/02/17 11:31 04/02/17 11:31 04/02/17 11:31 04/02/17 11:31 General appearance: Present: cooperative, mild distress, A&O X 3, answers questions appropriately - Respiratory Respiratory exam: Present: CTAB. Absent: accessory muscle use, rales, rhonchi, wheezes - Cardiovascular Cardiovascular exam: Present: RRR, +S1, +S2. Absent: diastolic murmur, gallop, rubs, systolic murmur - GI/Abdominal GI/Abdominal exam: Present: normal bowel sounds, soft, no peritoneal signs. Absent: distended, tenderness - Neurological Exam Neurological exam: Present: alert, oriented X3, no focal deficits, strengths equal and symetr throughout. Absent: facial droop, speech deficit - Skin Skin exam: Present: dry, intact Internal Medicine: Result - Labs CBC & Chem 7: 03/30/17 21:05 04/01/17 04:06 Consult Discharge Plan - Plan Additional Instructions: Follow-up with pain management as outpatient in 1-2 weeks for epidural steroid injection Referrals: Fer Cobb MD [Primary Care Provider] - 04/08/17 2:15 pm () - Attending Attestation This document has been at least partially created by [employer] recognition technology by Dr. Cunningham. Errors in grammar, wording or other phrases may exist. If errors are found after the documentation is signed, they will be addressed individually in the addendum section of this document when appropriate.
[2017-04-03] MEDS: Ondansetron 4 MG/2 ML VIAL IVP PRN (03:38)
[2017-04-03] MEDS: *HR* Heparin 5,000 UNIT/ML VIAL SQ SCH ×2 (05:20→16:44)
[2017-04-03] MEDS: Gabapentin 400 MG CAPSULE PO SCH ×3 (07:57→21:01)
[2017-04-03] MEDS: lamoTRIgine 100 MG TABLET PO SCH ×2 (07:57→21:01)
[2017-04-03] MEDS: tiZANidine 4 MG TABLET PO SCH ×4 (07:57→21:01)
[2017-04-03] MEDS: Nicotine 21 MG PATCH.TD24 TD SCH (08:01)
[2017-04-03] MEDS: Acetaminophen 325 MG TABLET PO PRN ×2 (08:03→21:12)
[2017-04-03] MEDS: Budesonide/Formoterol 160/4.5 MDI IH SCH ×2 (08:03→22:19)
[2017-04-03] MEDS: *HR* OxyCODONE/APAP 10/325 TABLET PO PRN ×2 (10:26→23:13)
[2017-04-03] MEDS ORDERED: *HR* HYDROmorphone 2 MG/ML SYRINGE IVP PRN (13:50)
--- NOTE | 2017-04-03 13:51 | Internal Med Progress Note ---
Date of Encounter: 04/03/17 Time of Encounter: 10:35 - Assessment and plan (1) Intractable back pain Current Visit: Yes Status: Acute Assessment and plan: Improving. Continue physical therapy and pain control. Awaiting placement to skilled rehabilitation. Low risk for complications at this time. Minimal IV narcotic use. (2) GERD (gastroesophageal reflux disease) Current Visit: Yes Status: Chronic Assessment and plan: Continue PPI Qualifiers: Esophagitis presence: without esophagitis Qualified Code(s): K21.9 - Gastro -esophageal reflux disease without esophagitis (3) Hypokalemia Current Visit: Yes Status: Resolved (4) Lumbar radiculopathy Current Visit: No Status: Chronic Assessment and plan: Continue physical therapy and pain control. Follow-up with pain management for epidural steroid injection. (5) Neuropathy Current Visit: Yes Status: Chronic Assessment and plan: Continue gabapentin (6) Diarrhea Current Visit: Yes Status: Acute Assessment and plan: Likely due to use of laxatives diabetes. This is improving now. Will follow. If patient continues to have diarrhea, we will check for C. difficile. Qualifiers: Diarrhea type: unspecified type Qualified Code(s): R19.7 - Diarrhea, unspecified - Subjective Interval history: Patient remains in pain although this is improving and patient is able to tolerate oral pain medications better for pain control. She is also able to move and worked with physical therapy better. She wishes to go to rehabilitation for further care and recovery. - Constitutional Vitals: Temp Pulse Resp BP Pulse Ox 98.0 F 74 15 109/70 93 04/03/17 11:19 04/03/17 11:19 04/03/17 11:19 04/03/17 11:19 04/03/17 11:19 General appearance: Present: cooperative, mild distress, A&O X 3, answers questions appropriately - Neck Neck exam general surgery: Present: supple, trachea midline. Absent: lymphadenopathy - Respiratory Respiratory exam: Present: CTAB. Absent: accessory muscle use, rales, rhonchi, wheezes - Cardiovascular Cardiovascular exam: Present: RRR, +S1, +S2. Absent: diastolic murmur, gallop, rubs, systolic murmur - GI/Abdominal GI/Abdominal exam: Present: normal bowel sounds, soft, no peritoneal signs. Absent: distended, tenderness - Extremities Exam Extremities exam: Present: warm, radial pulses palpable and symetrical. Absent : calf tenderness, cyanotic, pedal edema - Neurological Exam Neurological exam: Present: alert, oriented X3, no focal deficits, strengths equal and symetr throughout. Absent: facial droop, speech deficit Internal Medicine: Result - Labs CBC & Chem 7: 03/30/17 21:05 04/01/17 04:06 Consult Discharge Plan - Plan Additional Instructions: Follow-up with pain management as outpatient in 1-2 weeks for epidural steroid injection Referrals: Fer Cobb MD [Primary Care Provider] - 04/08/17 2:15 pm () - Attending Attestation This document has been at least partially created by [employer] recognition technology by Dr. Cunningham. Errors in grammar, wording or other phrases may exist. If errors are found after the documentation is signed, they will be addressed individually in the addendum section of this document when appropriate.
[2017-04-04] MEDS: *HR* Heparin 5,000 UNIT/ML VIAL SQ SCH ×2 (04:15→17:45)
[2017-04-04] MEDS: Budesonide/Formoterol 160/4.5 MDI IH SCH ×2 (08:03→21:17)
[2017-04-04] MEDS: Acetaminophen 325 MG TABLET PO PRN ×3 (08:41→21:20)
[2017-04-04] MEDS: Gabapentin 400 MG CAPSULE PO SCH ×3 (08:41→21:19)
[2017-04-04] MEDS: tiZANidine 4 MG TABLET PO SCH ×4 (08:41→21:20)
[2017-04-04] MEDS: lamoTRIgine 100 MG TABLET PO SCH ×2 (08:42→21:19)
[2017-04-04] MEDS: Nicotine 21 MG PATCH.TD24 TD SCH (08:42)
--- NOTE | 2017-04-04 10:17 | Internal Med Progress Note ---
Date of Encounter: 04/04/17 Time of Encounter: 10:17 - Assessment and plan (1) Intractable back pain Current Visit: Yes Status: Acute Assessment and plan: Continue current pain management. Awaiting placement to rehabilitation for physical therapy. Low risk for complications. (2) GERD (gastroesophageal reflux disease) Current Visit: Yes Status: Chronic Assessment and plan: Continue PPI Qualifiers: Esophagitis presence: without esophagitis Qualified Code(s): K21.9 - Gastro -esophageal reflux disease without esophagitis (3) Hypokalemia Current Visit: Yes Status: Resolved (4) Lumbar radiculopathy Current Visit: No Status: Chronic Assessment and plan: Physical therapy. Follow-up outpatient with spine surgery and pain management (5) Neuropathy Current Visit: Yes Status: Chronic (6) Diarrhea Current Visit: Yes Status: Resolved Qualifiers: Diarrhea type: unspecified type Qualified Code(s): R19.7 - Diarrhea, unspecified - Subjective Interval history: Patient's pain is improving. Patient is able to tolerate more activity. Denies any other new complaints at this time. Diarrhea has improved. - Constitutional Vitals: Temp Pulse Resp BP Pulse Ox 98 F 74 19 110/67 92 04/04/17 08:37 04/04/17 08:37 04/04/17 08:37 04/04/17 08:37 04/04/17 08:37 General appearance: Present: cooperative, mild distress, A&O X 3, answers questions appropriately - Neck Neck exam general surgery: Present: supple, trachea midline. Absent: lymphadenopathy - Respiratory Respiratory exam: Present: CTAB. Absent: accessory muscle use, rales, rhonchi, wheezes - Cardiovascular Cardiovascular exam: Present: RRR, +S1, +S2. Absent: diastolic murmur, gallop, rubs, systolic murmur - GI/Abdominal GI/Abdominal exam: Present: normal bowel sounds, soft, no peritoneal signs. Absent: distended, tenderness Internal Medicine: Result - Labs CBC & Chem 7: 03/30/17 21:05 04/01/17 04:06 Consult Discharge Plan - Plan Additional Instructions: Follow-up with pain management as outpatient in 1-2 weeks for epidural steroid injection Referrals: Fer Cobb MD [Primary Care Provider] - 04/08/17 2:15 pm () - Attending Attestation This document has been at least partially created by [employer] recognition technology by Dr. Cunningham. Errors in grammar, wording or other phrases may exist. If errors are found after the documentation is signed, they will be addressed individually in the addendum section of this document when appropriate.
[2017-04-04] MEDS: *HR* OxyCODONE/APAP 10/325 TABLET PO PRN ×2 (12:28→18:35)
[2017-04-05] MEDS: *HR* Heparin 5,000 UNIT/ML VIAL SQ SCH ×2 (04:55→18:33)
[2017-04-05] MEDS: lamoTRIgine 100 MG TABLET PO SCH ×2 (09:14→20:25)
[2017-04-05] MEDS: Gabapentin 400 MG CAPSULE PO SCH ×3 (09:14→20:24)
[2017-04-05] MEDS: *HR* OxyCODONE/APAP 10/325 TABLET PO PRN ×2 (09:15→15:43)
[2017-04-05] MEDS: tiZANidine 4 MG TABLET PO SCH ×4 (09:32→20:25)
[2017-04-05] MEDS: Nicotine 21 MG PATCH.TD24 TD SCH (09:38)
[2017-04-05] MEDS: Budesonide/Formoterol 160/4.5 MDI IH SCH ×2 (11:46→20:09)
[2017-04-05] MEDS: Acetaminophen 325 MG TABLET PO PRN ×2 (12:25→20:24)
--- NOTE | 2017-04-05 12:41 | Discharge Summary ---
Date of Encounter: 04/05/17 Time of Encounter: 09:45 - Discharge Diagnosis (1) Intractable back pain Priority: Primary Status: Acute (2) GERD (gastroesophageal reflux disease) Priority: Secondary Status: Chronic Qualifiers: Esophagitis presence: without esophagitis Qualified Code(s): K21.9 - Gastro -esophageal reflux disease without esophagitis (3) Hypokalemia Priority: Secondary Status: Resolved (4) Lumbar radiculopathy Priority: Secondary Status: Chronic (5) Neuropathy Priority: Secondary Status: Chronic (6) Diarrhea Priority: Secondary Status: Resolved Qualifiers: Diarrhea type: unspecified type Qualified Code(s): R19.7 - Diarrhea, unspecified - Discharge Medications Prescriptions: OxyCODONE/APAP 10/325 [Percocet 10/325 MG] 1 each PO Q6HR PRN #14 tablet PRN Reason: Moderate Pain (4-6) Gabapentin [Neurontin] 1,200 mg PO TID #90 tablet Tizanidine HCl 4 mg PO QID #30 tablet Home Medications: Albuterol Sulfate [Albuterol Inhaler] 2 puff IH Q4HR PRN 01/25/17 [History] Fluticasone/Vilanterol [Breo Ellipta 100-25 Mcg INH] 1 each IH DAILY 01/25/17 [ History] Omeprazole [PriLOSEC] 40 mg PO DAILY 01/25/17 [History] lamoTRIgine [Lamictal] 150 mg PO BID 01/25/17 [History] Gabapentin [Neurontin] 1,200 mg PO TID #90 tablet 04/05/17 [Rx] OxyCODONE/APAP 10/325 [Percocet 10/325 MG] 1 each PO Q6HR PRN #14 tablet [Rx] Tizanidine HCl 4 mg PO QID #30 tablet 04/05/17 [Rx] Allergies/Adverse Reactions: Allergies No Known Allergies Allergy (Verified 03/30/17 20:12) Date of admission: 04/02/17 15:00 Primary care physician: Fer Cobb MD Consults: 03/31/17 03:08 Consult to Orthopedic Surgery [CONS] Routine Consulting Provider: Nakul Lozoya Jr Reason for Consult: back pain. Call Completed: No 04/01/17 10:57 PT [Consult to Physical Therapy] [CONS] Routine Comment: Evaluate, develop and implement POC Reason for Consult: weakness 04/01/17 10:58 OT [Consult to Occupational Therapy] [CONS] Routine Comment: Evaluate, develop and implement POC Reason for Consult: weakness 04/02/17 07:04 Consult to Awning Craftsperson [CONS] Routine Reason for SW Consult: needs inpt rehab/swing per therapy Discharging clinician: John Cunningham Anticipated date of discharge: 04/06/17 - Patient Status Disposition: Transfer Inpatient Rehab Fac Condition: Good Functional capacity at discharge: uses cane/walker Overall status at discharge: patient is not back to baseline - Discharge Instructions Follow Up With: Fer Cobb MD [Primary Care Provider] - 04/08/17 2:15 pm () Additional Instructions: Follow-up with pain management as outpatient in 1-2 weeks for epidural steroid injection - Diet and Activity Activity: as per physical therapy Diet: low fat, low cholesterol, low salt diet Hospital course: Ms. Taylor is a 57 year old female patient patient with a history of gastroesophageal reflux disease, fibromyalgia, chronic back pain who previously had discectomy 2 months back presented to the ER with complaints of worsening lumbar pain radiating to her right lower extremity. She was evaluated in the ER and underwent MRI of the spine which showed disc protrusions at levels L4- S1. There is also residual or recurrent right subarticular disc protrusion at L4-L5 that closely approximated the descending right L5 nerve root in the right lateral recess with some postoperative granulation tissue in the right lateral epidural space surrounding the right L5 nerve root. Spine surgery was consulted and they recommended changing the patient's muscle relaxant to tizanidine and to arrange for follow-up with pain management for epidural steroid injection for symptomatic relief. Patient was in severe pain in her requiring multiple doses of narcotic medications to keep her pain under control. After her pain was controlled with these medications, she was started on physical therapy. Physical therapy recommended that the patient be discharged to inpatient rehabilitation Bed. This Is Currently Being Worked on by the calender worker helper and patient will be discharged once this is arranged. Patient did develop some diarrhea here but that has spontaneously resolved. - Time Spent with Patient Total time spent providing and/or coordinating discharge services: Greater than 30 minutes (35 MIN) - Constitutional Vitals: Temp Pulse Resp BP Pulse Ox 98.0 F 71 19 105/71 91 04/05/17 11:02 04/05/17 11:02 04/05/17 11:02 04/05/17 11:02 04/05/17 11:02 General appearance: Present: cooperative, mild distress, A&O X 3, answers questions appropriately - Neck Neck exam general surgery: Present: supple, trachea midline. Absent: lymphadenopathy - Respiratory Respiratory exam: Present: CTAB. Absent: accessory muscle use, rales, rhonchi, wheezes - Cardiovascular Cardiovascular exam: Present: RRR, +S1, +S2. Absent: diastolic murmur, gallop, rubs, systolic murmur - GI/Abdominal GI/Abdominal exam: Present: normal bowel sounds, soft, no peritoneal signs. Absent: distended, tenderness - Extremities Exam Extremities exam: Present: warm, radial pulses palpable and symetrical. Absent : calf tenderness, cyanotic, pedal edema - Neurological Exam Neurological exam: Present: CN II-XII intact, oriented X3, strengths equal and symetr throughout. Absent: facial droop, speech deficit Additional comments: Decreased sensation in the right foot that is chronic - Attending Attestation This document has been at least partially created by [employer] recognition technology by Dr. Cunningham. Errors in grammar, wording or other phrases may exist. If errors are found after the documentation is signed, they will be addressed individually in the addendum section of this document when appropriate.
--- NOTE | 2017-04-05 12:47 | Physician Discharge Referral ---
ExtendedCare Referral Info Provider in Charge after Transfer: PCP Institutional Level of Care: Skilled - Diagnosis (1) Intractable back pain Priority: Primary Status: Acute (2) GERD (gastroesophageal reflux disease) Priority: Secondary Status: Chronic (3) Hypokalemia Priority: Secondary Status: Resolved (4) Lumbar radiculopathy Priority: Secondary Status: Chronic (5) Neuropathy Priority: Secondary Status: Chronic (6) Diarrhea Priority: Secondary Status: Resolved Prognosis: Fair Aware of Diagnosis: Patient Aware of Prognosis: Patient - Transfer Medications Prescriptions: OxyCODONE/APAP 10/325 [Percocet 10/325 MG] 1 each PO Q6HR PRN #14 tablet PRN Reason: Moderate Pain (4-6) Gabapentin [Neurontin] 1,200 mg PO TID #90 tablet Tizanidine HCl 4 mg PO QID #30 tablet Home Medications: Albuterol Sulfate [Albuterol Inhaler] 2 puff IH Q4HR PRN 01/25/17 [History] Fluticasone/Vilanterol [Breo Ellipta 100-25 Mcg INH] 1 each IH DAILY 01/25/17 [ History] Omeprazole [PriLOSEC] 40 mg PO DAILY 01/25/17 [History] lamoTRIgine [Lamictal] 150 mg PO BID 01/25/17 [History] Gabapentin [Neurontin] 1,200 mg PO TID #90 tablet 04/05/17 [Rx] OxyCODONE/APAP 10/325 [Percocet 10/325 MG] 1 each PO Q6HR PRN #14 tablet [Rx] Tizanidine HCl 4 mg PO QID #30 tablet 04/05/17 [Rx] Allergies/Adverse Reactions: Allergies No Known Allergies Allergy (Verified 03/30/17 20:12) - Respiratory Orders Smoking Cessation: Smoking cessation has been advised. For more information, call the [place] Tobacco Quit Line at 4-580-XHAH-NOW. - Ancillary Orders May consult with Dentist, Activity Specialist, Acquisition Consultant PRN - Advance Directives Code Status: Full Code - Mobility Orders Other (per PT evaluation) - Rehabiliation Orders Rehab Potential: Fair Rehab Orders: Evaluation for Physical Therapy, Evaluation for Occupational Therapy - Diet Orders Cardiac CERTIFICATION: I certify that the transfer of the above named patient to an Extended Care Facility is necessary for the continuing treatment of the diagnosis listed. The above information is true and accurate reflection of patient's current condition. Confidential - Redisclosure prohibited without a patient's written consent.
[2017-04-06] MEDS: *HR* Heparin 5,000 UNIT/ML VIAL SQ SCH ×2 (05:04→15:52)
[2017-04-06] MEDS: Budesonide/Formoterol 160/4.5 MDI IH SCH ×2 (07:59→23:13)
[2017-04-06] MEDS: lamoTRIgine 100 MG TABLET PO SCH ×2 (08:20→21:23)
[2017-04-06] MEDS: *HR* OxyCODONE/APAP 10/325 TABLET PO PRN ×2 (08:20→23:05)
[2017-04-06] MEDS: tiZANidine 4 MG TABLET PO SCH ×4 (08:21→21:23)
[2017-04-06] MEDS: Gabapentin 400 MG CAPSULE PO SCH ×3 (08:21→21:23)
[2017-04-06] MEDS: Nicotine 21 MG PATCH.TD24 TD SCH (08:21)
--- NOTE | 2017-04-06 09:38 | Internal Med Progress Note ---
Date of Encounter: 04/06/17 Time of Encounter: 09:36 - Assessment and plan (1) Intractable back pain Current Visit: Yes Status: Acute Assessment and plan: Patient has been in the hospital for the last 6 days, admitted for back pain and has been evaluated by orthopedic surgery on day 1, recommended outpatient follow-up with pain management for epidural steroid injections. She has been receiving pain control with oral Percocet and has been awaiting rehabilitation placement. However patient reports being very concerned about her back pain and spinal pathology and insists on speaking with the spine surgeon. Discussed with Dr. Lozoya, who will reassess the patient today. managed services sales consultant working on placement, please refer to child protective services social worker note for further details. Pain control with oral Percocet. Patient continues to report 8/10 pain despite oral Percocet, tried IV morphine but patient developed mild hypersensitivity reaction with erythema and itching, will start IV Dilaudid as needed. (2) Lumbar radiculopathy Current Visit: Yes Status: Chronic Assessment and plan: Continue pain control, muscle relaxants and gabapentin. Physical therapy. (3) GERD (gastroesophageal reflux disease) Current Visit: Yes Status: Chronic Qualifiers: Esophagitis presence: without esophagitis Qualified Code(s): K21.9 - Gastro -esophageal reflux disease without esophagitis (4) Tobacco abuse Current Visit: Yes Status: Chronic - Subjective Interval history: Reports being in 8/10 back pain with some right leg weakness due to pain; very concerned about her spine and requests to speak to Spine surgeon prior to discharge; also wonders if going to Rehab is a good option for her; - Constitutional Vitals: Temp Pulse Resp BP Pulse Ox 98.0 F 73 18 103/66 93 04/06/17 06:47 04/06/17 06:47 04/06/17 06:47 04/06/17 06:47 04/06/17 06:47 General appearance: Present: mild distress, A&O X 3, answers questions appropriately - Respiratory Respiratory exam: Present: CTAB. Absent: accessory muscle use, rales, rhonchi, wheezes - Cardiovascular Cardiovascular exam: Present: RRR, +S1, +S2. Absent: diastolic murmur, gallop, rubs, systolic murmur - Extremities Exam Extremities exam: Present: full ROM (decreased flexion and straight leg raise in right LE due to pain), warm, radial pulses palpable and symetrical. Absent: calf tenderness, cyanotic, pedal edema Internal Medicine: Result - Labs CBC & Chem 7: 03/30/17 21:05 04/01/17 04:06 Consult Discharge Plan - Plan Additional Instructions: Follow-up with pain management as outpatient in 1-2 weeks for epidural steroid injection Referrals: Fer Cobb MD [Primary Care Provider] - (Patient going to [facility], will follow up with their PCP until Discharged from there) Waylon Rangel DO [Partnered Physician] - 04/16/17 11:30 am Prescriptions: OxyCODONE/APAP 10/325 [Percocet 10/325 MG] 1 each PO Q6HR PRN #14 tablet PRN Reason: Moderate Pain (4-6) Gabapentin [Neurontin] 1,200 mg PO TID #90 tablet Tizanidine HCl 4 mg PO QID #30 tablet
[2017-04-06] MEDS: Acetaminophen 325 MG TABLET PO PRN ×2 (10:40→21:23)
[2017-04-06] MEDS ORDERED: *HR* Morphine 2 MG/ML SYRINGE IVP ONE (11:50)
[2017-04-07] MEDS: *HR* Heparin 5,000 UNIT/ML VIAL SQ SCH (05:43)
[2017-04-07] MEDS: Budesonide/Formoterol 160/4.5 MDI IH SCH (07:44)
[2017-04-07] MEDS: lamoTRIgine 100 MG TABLET PO SCH (08:24)
[2017-04-07] MEDS: Gabapentin 400 MG CAPSULE PO SCH ×2 (08:24→14:22)
[2017-04-07] MEDS: tiZANidine 4 MG TABLET PO SCH ×3 (08:24→17:29)
[2017-04-07] MEDS: Nicotine 21 MG PATCH.TD24 TD SCH (08:24)
[2017-04-07] MEDS: *HR* OxyCODONE/APAP 10/325 TABLET PO PRN ×2 (08:29→16:38)
--- NOTE | 2017-04-07 13:15 | Internal Med Progress Note ---
Date of Encounter: 04/07/17 Time of Encounter: 11:45 - Assessment and plan (1) Intractable back pain Current Visit: Yes Status: Acute Assessment and plan: Patient has been evaluated by orthopedic surgery at admission and recommend outpatient follow-up with pain management for epidural steroid injections. Case again discussed with Dr. Lozoya with spine surgery yesterday, who reevaluated and discussed with patient about MRI findings and no indication for acute surgical intervention. Patient is medically stable for discharge at this time, awaiting placement. director clinical information services working on placement, please refer to school social worker note for further details. Pain control with oral Percocet. We will discontinue IV pain medications in anticipation of discharge. (2) Lumbar radiculopathy Current Visit: Yes Status: Chronic (3) GERD (gastroesophageal reflux disease) Current Visit: Yes Status: Chronic Qualifiers: Esophagitis presence: without esophagitis Qualified Code(s): K21.9 - Gastro -esophageal reflux disease without esophagitis (4) Tobacco abuse Current Visit: Yes Status: Chronic - Subjective Interval history: Reports feeling much better today. Continues to have intermittent low back pain but able to take a shower and participate with physical therapy. Reports ambulating in the hallway without a walker today. - Constitutional Vitals: Temp Pulse Resp BP Pulse Ox 98.3 F 72 18 107/65 92 04/07/17 07:55 04/07/17 07:55 04/07/17 07:55 04/07/17 07:55 04/07/17 07:55 General appearance: Present: A&O X 3, answers questions appropriately - Cardiovascular Cardiovascular exam: Present: RRR, +S1, +S2. Absent: diastolic murmur, gallop, rubs, systolic murmur Internal Medicine: Result - Labs CBC & Chem 7: 03/30/17 21:05 04/01/17 04:06 Consult Discharge Plan - Plan Additional Instructions: Follow-up with pain management as outpatient in 1-2 weeks for epidural steroid injection Referrals: Fer Cobb MD [Primary Care Provider] - (Patient going to [facility], will follow up with their PCP until Discharged from there) Waylon Rangel DO [Partnered Physician] - 04/16/17 11:30 am Prescriptions: OxyCODONE/APAP 10/325 [Percocet 10/325 MG] 1 each PO Q6HR PRN #14 tablet PRN Reason: Moderate Pain (4-6) Gabapentin [Neurontin] 1,200 mg PO TID #90 tablet Tizanidine HCl 4 mg PO QID #30 tablet
[2017-04-07 15:27] VITALS: BP 112/68
== END 2017-04-07 17:44 | DRG 552 ==
LOC: 2ANU 20:08 → EMEROO 20:08 → 2ANU 03-31 04:05 → SUATTDRO 04-02 15:00
PROVIDERS: ADMIT Internal Medicine; ATTEND Internal Medicine